=== PATIENT | female | born 1995 | race Caucasian/White ===

== ENCOUNTER → 2017-04-23 12:14 | Outpatient (CLI) | payer OTHER, MEDICAID ==
[~2017-04-23 12:14] MED LIST: IBUPROFEN800 MG PO; PERCOCET 7.5/321 TAB PO; PRENATAL COMPLE1 TAB PO
[2017-04-23 12:50] LABS: HEMATOCRIT 33.1 % (36.0-48.0); HEMOGLOBIN 11.1 g/dL (12-16); MCH 31.6 pg (26.0-34.0); MCHC 33.5 g/dL (31.0-37.0); MCV 94.3 fL (80.0-100.0); MEAN PLATELET VOLUME 11.7 fL (7.4-10.4); RBC 3.51 10x6/uL (4.00-5.40); RDW 12.7 % (11.5-14.5); WBC 14.8 10x3/uL (4.8-10.8)
[2017-04-23 13:02] LABS: ALT (SGPT) 18 U/L (10-68); CALC OSMOLALITY 279 mosm/kg (275-300); CALCIUM 9.7 mg/dL (8.5-10.1); CARBON DIOXIDE 24.8 mmol/L (21.0-32.0); CHLORIDE - SERUM 106 mmol/L (98-107); CREATININE - SERUM 0.4 mg/dL (0.6-1.3); GLUCOSE 84 mg/dL (74-106); SODIUM 142 mmol/L (136-145); UREA NITROGEN 7 mg/dL (7-18); eGFR NON AFRICAN AMERICAN > 90 mL/min (90-120)
[2017-04-23 13:49] LABS: APPEARANCE CLEAR (CLEAR); BILIRUBIN NEGATIVE (NEGATIVE); COLOR YELLOW (YELLOW); GLUCOSE NEGATIVE (NEGATIVE); KETONE NEGATIVE (NEGATIVE); NITRITE NEGATIVE (NEGATIVE); PROTEIN NEGATIVE (NEGATIVE); SPECIFIC GRAVITY 1.015 (1.005-1.020); UROBILINOGEN NORMAL (NORMAL)
[2017-04-23 13:53] LABS: AMORPHOUS SEDIMENT <1+ /lpf (NONE SEEN); BACTERIA MODERATE /hpf (NONE SEEN); EPITHELIAL CELLS 0-5 /hpf (0-5)
[2017-04-23 13:55] LABS: RED CELLS - URINE OCC /hpf (0-5)
[2017-04-26 13:08] LABS: PROTEIN - URINE 16.1 mg/dL (0.0-11.9)
[2017-05-05 05:28] VITALS: BMI 39.0
== END | disposition home or self-care (01) ==
LOC: D.LDO 12:14
PROVIDERS: Obstetrics & Gynecology
DX: O13.9 Gestational [pregnancy-induced] hypertension without significant proteinuria, unspecified trimester (principal); Z3A.00 Weeks of gestation of pregnancy not specified

== ENCOUNTER → 2017-04-26 11:36 | Outpatient (CLI) | payer OTHER, MEDICAID ==
[2017-05-05 05:28] VITALS: BMI 39.0
== END | disposition home or self-care (01) ==
LOC: D.LDO 11:36
DX: O16.3 Unspecified maternal hypertension, third trimester (principal); Z3A.35 35 weeks gestation of pregnancy

== ENCOUNTER → 2017-04-27 18:08 | Outpatient (CLI) | payer OTHER, MEDICAID ==
[2017-04-27 18:35] LABS: BASOPHILS 0.1 % (0-2); EOSINOPHILS 0.7 % (0-7); HEMATOCRIT 33.4 % (36.0-48.0); HEMOGLOBIN 11.1 g/dL (12-16); IMMATURE GRANULOCYTES 0.4 % (0-5); LYMPHOCYTES 12.4 % (15-50); MCH 31.2 pg (26.0-34.0); MCHC 33.2 g/dL (31.0-37.0); MCV 93.8 fL (80.0-100.0); MEAN PLATELET VOLUME 11.8 fL (7.4-10.4); MONOCYTES 5.3 % (2-11); NEUTROPHILS 81.1 % (40-80); PLATELET COUNT 204 10x3/uL (130-400); RBC 3.56 10x6/uL (4.00-5.40); RDW 12.6 % (11.5-14.5); WBC 14.1 10x3/uL (4.8-10.8)
[2017-04-27 18:45] LABS: APPEARANCE CLEAR (CLEAR); BILIRUBIN NEGATIVE (NEGATIVE); COLOR DK YELLOW (YELLOW); GLUCOSE NEGATIVE (NEGATIVE); KETONE SMALL mg/dL (NEGATIVE); NITRITE NEGATIVE (NEGATIVE); PROTEIN NEGATIVE (NEGATIVE); UROBILINOGEN NORMAL (NORMAL)
[2017-04-27 18:46] LABS: RED CELLS - URINE 0-5 /hpf (0-5)
[2017-04-27 18:47] LABS: BACTERIA FEW /hpf (NONE SEEN); EPITHELIAL CELLS 0-5 /hpf (0-5)
[2017-04-27 18:48] LABS: ALBUMIN 2.4 g/dL (3.4-5.0); ALKALINE PHOSPHATASE 112 U/L (46-116); ALT (SGPT) 19 U/L (10-68); BILIRUBIN - INDIRECT 0.17 mg/dL (0.00-1.00); BILIRUBIN - TOTAL 0.21 mg/dL (0.2-1.3); CALC OSMOLALITY 274 mosm/kg (275-300); CALCIUM 8.4 mg/dL (8.5-10.1); CARBON DIOXIDE 23.1 mmol/L (21.0-32.0); CHLORIDE - SERUM 105 mmol/L (98-107); CREATININE - SERUM 0.5 mg/dL (0.6-1.3); GLUCOSE 115 mg/dL (74-106); PROTEIN - SERUM 6.7 g/dL (6.4-8.2); SODIUM 138 mmol/L (136-145); UREA NITROGEN 6 mg/dL (7-18); URIC ACID 4.7 mg/dL (2.6-7.2); eGFR NON AFRICAN AMERICAN > 90 mL/min (90-120)
[2017-04-27 18:49] LABS: BILIRUBIN - DIRECT 0.04 mg/dL (0.00-0.30); POTASSIUM - SERUM 2.7 mmol/L (3.5-5.1)
[2017-05-05 05:28] VITALS: BMI 39.0
== END | disposition home or self-care (01) ==
LOC: D.LDO 18:08
PROVIDERS: Obstetrics & Gynecology
DX: O16.3 Unspecified maternal hypertension, third trimester (principal); Z3A.36 36 weeks gestation of pregnancy

== ENCOUNTER → 2017-05-03 11:43 | Outpatient (CLI) | payer OTHER, MEDICAID ==
[2017-05-03 13:10] LABS: HEMATOCRIT 32.3 % (36.0-48.0); HEMOGLOBIN 11.1 g/dL (12-16); MCH 31.3 pg (26.0-34.0); MCHC 34.4 g/dL (31.0-37.0); MEAN PLATELET VOLUME 11.7 fL (7.4-10.4); RBC 3.55 10x6/uL (4.00-5.40); RDW 12.5 % (11.5-14.5); WBC 15.1 10x3/uL (4.8-10.8)
[2017-05-03 13:21] LABS: ALT (SGPT) 16 U/L (10-68); CALC OSMOLALITY 271 mosm/kg (275-300); CALCIUM 8.5 mg/dL (8.5-10.1); CARBON DIOXIDE 24.6 mmol/L (21.0-32.0); CHLORIDE - SERUM 105 mmol/L (98-107); CREATININE - SERUM 0.4 mg/dL (0.6-1.3); GLUCOSE 76 mg/dL (74-106); SODIUM 138 mmol/L (136-145); UREA NITROGEN 5 mg/dL (7-18); URIC ACID 4.8 mg/dL (2.6-7.2); eGFR NON AFRICAN AMERICAN > 90 mL/min (90-120)
[2017-05-03 13:22] LABS: POTASSIUM - SERUM 2.9 mmol/L (3.5-5.1)
[2017-05-05 05:28] VITALS: BMI 39.0
== END | disposition home or self-care (01) ==
LOC: D.LDO 11:43
PROVIDERS: Obstetrics & Gynecology
DX: O14.03 Mild to moderate pre-eclampsia, third trimester (principal); Z3A.36 36 weeks gestation of pregnancy

== ENCOUNTER 2017-05-05 04:02 | Inpatient (IN) | payer OTHER, MEDICAID ==
[~2017-05-05] VITALS: Ht 175.3 cm; Wt 119.7 kg
[2017-05-05 04:47] LABS: APPEARANCE HAZY (CLEAR); BILIRUBIN NEGATIVE (NEGATIVE); COLOR YELLOW (YELLOW); GLUCOSE NEGATIVE (NEGATIVE); KETONE NEGATIVE (NEGATIVE); NITRITE NEGATIVE (NEGATIVE); PROTEIN TRACE mg/dL (NEGATIVE); SPECIFIC GRAVITY 1.015 (1.005-1.020); UROBILINOGEN NORMAL (NORMAL)
[2017-05-05 04:48] LABS: BACTERIA FEW /hpf (NONE SEEN); EPITHELIAL CELLS 0-5 /hpf (0-5); RED CELLS - URINE RARE /hpf (0-5)
[2017-05-05 04:54] LABS: UDS - AMPHET NEGATIVE QUAL (NEGATIVE); UDS - BARB NEGATIVE QUAL (NEGATIVE); UDS - BENZO NEGATIVE QUAL (NEGATIVE); UDS - COCAINE NEGATIVE QUAL (NEGATIVE); UDS - OPIATE NEGATIVE QUAL (NEGATIVE); UDS - PCP NEGATIVE QUAL (NEGATIVE); UDS - THC POSITIVE QUAL (NEGATIVE)
[2017-05-05] MEDS ORDERED: PRENATAL COMPLE1 TAB PO (05:27)
[2017-05-05 05:28] VITALS: BP 148/83; Ht 175.3 cm; Wt 119.7 kg
[2017-05-05 05:35] LABS: HEMATOCRIT 35.3 % (36.0-48.0); MCH 31.6 pg (26.0-34.0); MCV 92.9 fL (80.0-100.0); MEAN PLATELET VOLUME 11.9 fL (7.4-10.4); RBC 3.8 10x6/uL (4.00-5.40); RDW 12.8 % (11.5-14.5); WBC 17.3 10x3/uL (4.8-10.8)
[2017-05-05 05:51] LABS: CALCIUM 9.2 mg/dL (8.5-10.1); CARBON DIOXIDE 25.2 mmol/L (21.0-32.0); CHLORIDE - SERUM 103 mmol/L (98-107); CREATININE - SERUM 0.3 mg/dL (0.6-1.3); GLUCOSE 104 mg/dL (74-106); SODIUM 139 mmol/L (136-145); URIC ACID 4.9 mg/dL (2.6-7.2); eGFR NON AFRICAN AMERICAN > 90 mL/min (90-120)
[2017-05-05 05:52] LABS: CALC OSMOLALITY 275 mosm/kg (275-300); POTASSIUM - SERUM 2.9 mmol/L (3.5-5.1); UREA NITROGEN 7 mg/dL (7-18)
--- NOTE | 2017-05-05 15:22 | NUR ---
NO CORD ABGS NEEDED PER DR PENA
--- NOTE | 2017-05-05 16:02 | NUR ---
FUNDUS IS MIDLINE, FIRM AT THE UMBILICUS. MAGDALENO PAD IN PLACE. MINIMAL LOCHIA.
--- NOTE | 2017-05-05 16:25 | NUR ---
RECEIVED PT FROM RR VIA BED. PT AAOX3. FUNDUS FIRM U/1 AND MIDLINE. CURRENT PAD 80% SATURATED WITH RUBRA LOCHIA. NO CLOTS NOTED. CLEAN MAGDALENO PADS PLACED. IV OF NS WITH 20UNITS PITOCIN INFUSING VIA PUMP AT 125ML/HR TO LEFT FA. SITE C/D/I. LUNGS SOUND CTA, BOWEL SOUNDS ACTIVE X 4. ICE PACK PLACED OVER ABD DRESSING, WHICH IS C/D/I. 16FR ZAVALA IN PLACE AND DRAINING TO GRAVITY. REMAINS SKIN TO SKIN AT THIS TIME. PT RATING PAIN AT INCISION SITE 6/10.
[2017-05-05 16:28] VITALS: BP 139/65
--- NOTE | 2017-05-05 16:32 | NUR ---
MORPHINE PUNCH OUT CREW MEMBER CONNECTED AND PLACED ON PUMP. 2 MG LOADING DOSE GIVEN AT THIS TIME.
--- NOTE | 2017-05-05 16:39 | NUR ---
ZAVALA CATHETER 500CC YELLOW URINE COLLECTED DURING OR AND IN PACU.
--- NOTE | 2017-05-05 16:45 | NUR ---
BEDSIDE REPORT REC'D FROM Keily NGUYEN RN. PT IN SEMI FOWLERS POSITION BONDING WITH AT THIS TIME AND PREPARING TO BREAST FEED INFANT. VSS.
--- NOTE | 2017-05-05 17:01 | NUR ---
NBN AT BEDSIDE WITH . NBN RN ASSIST WITH BREAST FEEDING AT THIS TIME.
--- NOTE | 2017-05-05 17:02 | NUR ---
INFANT TO NBN WITH Keily NGUYEN RN. ASSESSMENT COMPLETED. PAIN 7/10, PT INSTRUCTED ON TRACK COACH USE AND USES TRACK COACH WITH RN AT BEDSIDE. VSS. FUNDUS FIRM, U1 AND MIDLINE, MODERATE AMT RUBRA LOCHIA, NO CLOTS PRESENT. BREATH SOUND CLEAR AND EQUAL BILATERALLY. ZAVALA TO BEDSIDE DRAINAGE, 100 MLS CLEAR LIGHT YELLOW URINE EMPTIED FROM ZAVALA. BOWEL SOUNDS HYPOACTIVE X4, PT DENIES PASSING FLATUS AT THIS TIME. DENIES NAUSEA. DRSG CLEAN, DRY, AND INTACT WITH NO DRAINAGE TO LOWER TRANSVERSE ABD. SCHEDULED TORADOL GIVEN PER ORDERS. 1+ BLE AND BUE EDEMA PRESENT. ICE CHIPS PROVIDED PER REQUEST. SCDS CONNECTED AND PUMP STARTED. PIV INFUSING TO LEFT FA, NO S/S OF INFILATRATION NOTED TO PIV SITE. ZAVALA CARE AND PERICARE DONE. PERIPADS AND CHUX CHANGE. ICE PACK GIVEN. INSTRUCTED ON INCENTIVE SPIROMETER WITH RETURN DEMONSTRATION X5. S/O AT BEDSIDE, SUPPORTIVE AND ATTENTIVE TO PT. DENIES ADDITIONAL NEEDS AT THIS TIME. BED IN LOW POSITION WITH UPPER SIDE RAILS RAISED X2. CL AND PHONE WITHIN REACH. WILL CONT TO MONITOR AND ASSIST PRN.
--- NOTE | 2017-05-05 17:39 | NUR ---
RN TO BEDSIDE. 50 MLS URINE OUTPUT NOTED. [employer] [place] SODA PROVIDED PER REQUEST. V/S REMAIN STABLE. FUNDUS REMAINS FIRM, MIDLINE, U1 WITH SMALL AMT RUBRA LOCHIA. S/O REMAINS AT BEDSIDE, BED IN LOW POSITION WITH UPPER SIDE RAILS RAISED X2. CL AND PHONE WITHIN REACH. WILL CONT TO MONITOR AND ASSIST PRN.
--- NOTE | 2017-05-05 18:33 | NUR ---
RN TO BEDSIDE FOR ROUNDING. PT RESTING WITH EYES CLOSED. PAIN 2/10. VSS. FUNDUS FIRM, U1 AND MIDLINE, SMALL AMT RUBRA LOCHIA, NO CLOTS. 75 MLS YELLOW URINE EMPTIED FROM ZAVALA. 262 MLS PIV FLUIDS AND 4 MLS FACILITY SECURITY OFFICER INFUSED. INCENTIVE SPIROMETER USED X10. POSITIONED TO LEFT SIDE WITH PILLOW PLACED BEHIND BACK FOR COMFORT AND SUPPORT. DENIES ADDITIONAL NEEDS. BED IN LOW POSITION WITH UPPER SIDE RAILS RAISED X2. CL AND PHONE WITHIN REACH. WILL CONT TO MONITOR.
[2017-05-05 19:25] VITALS: BP 140/758
--- NOTE | 2017-05-05 19:25 | NUR ---
REC'D PT LYING IN BED ON HER BACK. RESP EVEN AND UNLABORED. LUNGS CLEAR BILATERALLY. IV PATENT TO LFA, PITOCIN INFUSING AT 125CC/HR WITHOUT S/S INFILTRATION. BOWEL SOUNDS PRESENT X4. FUNDUS FIRM U/2. LARGE DRESSING INTACT TO ABDOMEN C/D/I. ZAVALA PATENT DRAINING CLEAR YELLOW URINE. LOCHIA RUBRA MODERATE. MAGDALENO PADS CHANGED. SCDS IN USE TO BLE. PUMP ON AND FUNCTIONING. PT RATES PAIN 6/10. SECURITIES COUNSELOR MORPHINE AVAILABLE FOR PAIN CONTROL, SECURITIES COUNSELOR BUTTON AND CALL LIGHT IN PT'S REACH. BED IN LOW POSITION. PT ESTEBAN NEEDS AT THIS TIME. NIKKI SLAUGHTER
--- NOTE | 2017-05-05 20:35 | NUR ---
LEMSHAHEEN TABLE MOUNTAIN, JELLO AND POPSICLE PROVIDED PER PT REQUEST.
--- NOTE | 2017-05-05 21:45 | NUR ---
ROOM CHECK, PT VISITING WITH VISITORS. NO NEEDS AT THIS TIME. NIKKI SLAUGHTER
--- NOTE | 2017-05-05 22:15 | NUR ---
TORADOL 30MG ADMINISTERED SIVP. PT RATES PAIN 8/10 TO ABDOMEN. INFORMED PT MAGDALENO CARE AND PADS WILL BE CHANGED WHEN VISITORS LEAVE. PT AGREEABLE. NIKKI SLAUGHTER
--- NOTE | 2017-05-06 00:01 | NUR ---
ANCEF 2GM BEGUN VIA PUMP. SEE E-MAR FOR DOCUMENTATION. NIKKI SLAUGHTER
[2017-05-06 00:05] VITALS: BP 120/56
--- NOTE | 2017-05-06 00:12 | OP ---
PATIENT NAME: SANDY VALLECILLO MEDICAL RECORD: [id number] :97 LOCATION:[id number] ADMISSION DATE:05/05/17 SURGEON: DE PENA MD DATE OF OPERATION: 05/05/2017 PREOPERATIVE DIAGNOSIS: Arrest of dilation. POSTOPERATIVE DIAGNOSIS: Arrest of dilation. PROCEDURE: Primary low transverse section. SURGEON: De Pena MD GRAIN UNLOADER MACHINE: Rene Vazquez ANESTHESIA: Continuous lumbar epidural. FINDINGS: Viable female infant, vertex presentation, Apgars were 8 and 9, weight 6 pounds 1 ounce. Large caput noted and significant molding. Tubes and ovaries unremarkable. SPECIMEN REMOVED: Placenta. SPECIMEN DISPOSITION: Discarded. ESTIMATED BLOOD LOSS: 700 cc. FLUIDS: Lactated Ringer's 1200 cc. URINE OUTPUT: Clear urine, 100 cc. COMPLICATION: None. DRAIN: Gallegos to gravity. INDICATION: The patient is a 21-year-old female who presented this morning after spontaneous rupture of membranes. She was augmented, and with adequate contractions, failed to dilate beyond 5 cm after 4 hours. The patient was consented for primary low transverse section. DESCRIPTION OF PROCEDURE: After informed consent was assured, the patient was taken to the operating room. Her anesthetic had been established and assessed. The patient was prepped and draped, and again after assessing the anesthetic, an incision was made and carried down to the underlying layer of the fascia. The fascia was opened and the rectus bellies were dissected free. Rectus bellies were now and the peritoneum was entered bluntly. Peritoneal opening was extended and an Aniket-O retractor was inserted and tightened. Low transverse hysterotomy was performed after development of a bladder flap. Infant was delivered onto the abdomen atraumatically. The placenta was delivered via Crede maneuver. Uterus was exteriorized, cleared of all clot and debris, and returned to the abdomen for the close. There was a small extension in the midline and this was reapproximated within it with a kiebnb-rf-[id number] chromic stitch. A #1 chromic stitch was now used to reapproximate the hysterotomy. After closure of the hysterotomy, the sponge count was correct times 1. Pelvis was irrigated. Small bleeding site was identified on the OPERATIVE REPORT [id number] SANDY VALLECILLO inferior aspect of the hysterotomy and this was made hemostatic with a zegmmm-ce-[id number] stitch. After placement of the eqcwro-jm-whfrc stitch, pelvis was again irrigated and irrigant was removed. The rectus bellies were inspected and found to be hemostatic. The fascia was now closed with a running looped PDS. After the closure of the fascia, the subcutaneous tissue was irrigated, bleeding vessels cauterized as necessary, and the subcutaneous tissue was reapproximated with a plain gut stitch. After reapproximation of the deep tissues, dov were applied. Sterile dressings were applied over this. Sponge, lap, and needle count was correct times 2. The patient was going to be recovered on labor and delivery. TRANSINT:[id number] Voice Confirmation ID: [id number] DOCUMENT ID: [id number] DE PENA MD at 0012 CC: [id number] DICTATION DATE: 05/05/17 1543 FISHER TRAWL NET: 05/05/17 2236 ADM IN [facility] [address] [place] [address]
--- NOTE | 2017-05-06 00:15 | NUR ---
MAGDALENO CARE, PADS CHANGED WITH ASSISTANCE FROM Paddy PINEDA RN. BEDSIDE REPORT GIVEN. FRESH ICE CAP AND ICE WATER TO DRINK PROVIDED PER PT REQUEST. NIKKI SLAUGHTER
--- NOTE | 2017-05-06 02:20 | NUR ---
BROUGHT BABY TO THE NURSERY IN OPEN CRIB.
--- NOTE | 2017-05-06 03:34 | NUR ---
PROP CUTTER VIAL CHANGED, PT RATES PAIN 5/10. BLANKET, [place]ON [place] PASS AND POPSICLES X2 PROVIDED PER PT REQUEST. S/O PRESENT IN ROOM AND SUPPORTIVE.
--- NOTE | 2017-05-06 04:20 | NUR ---
DR. PENA IN ROOM, AM ROUNDS.
--- NOTE | 2017-05-06 04:26 | NUR ---
TORADOL 30mg IV GIVEN SCHEDULED FOR BREAK-THROUGH PAIN. IV PUMP CLEARED AND ZAVALA CATH BAG EMPTIED. INFANT IN THE ROOM IN OPEN CRIB.
--- NOTE | 2017-05-06 04:50 | NUR ---
FIBERGLASS SKI MAKER HERE TO DRAW AM LAB.
[2017-05-06 04:55] LABS: BASOPHILS 0.1 % (0-2); EOSINOPHILS 0.4 % (0-7); HEMATOCRIT 28.7 % (36.0-48.0); HEMOGLOBIN 9.6 g/dL (12-16); IMMATURE GRANULOCYTES 0.3 % (0-5); LYMPHOCYTES 11.6 % (15-50); MCH 31.3 pg (26.0-34.0); MCHC 33.4 g/dL (31.0-37.0); MCV 93.5 fL (80.0-100.0); MEAN PLATELET VOLUME 11.6 fL (7.4-10.4); MONOCYTES 6.1 % (2-11); NEUTROPHILS 81.5 % (40-80); RBC 3.07 10x6/uL (4.00-5.40); RDW 12.9 % (11.5-14.5); WBC 14.4 10x3/uL (4.8-10.8)
[2017-05-06 05:02] LABS: PLATELET COUNT 150 10x3/uL (130-400)
--- NOTE | 2017-05-06 05:08 | NUR ---
ASSISTED MOM WITH UNTIL BABY LATCHED-ON. NIPPLE SHIELD USED. BONDING WELL.
--- NOTE | 2017-05-06 06:00 | NUR ---
ZAAVLA/MAGDALENO-CARE DONE. MODERATE TO LIGHT LOCHIA RUBRA. MAGDALENO-PAD CHANGED. ZAVALA CATH DC'd ORDERED. INSTRUCTED PT SHE WILL NEED TO VOID WITHIN 4hrs AND TO CALL FOR ASSISTANCE WHEN GETTING OUT OF BED FOR THE FIRST TIME. WILL NEED TO MEASURE FIRST THREE VOIDS. VERBALIZED UNDERSTANDING. SLEPT FAIRLY DURING THE NIGHT. CONTINUING PLAN OF CARE.
--- NOTE | 2017-05-06 07:00 | NUR ---
REPORT GIVEN TO AM SHIFT NURSES.
[2017-05-06 07:14] VITALS: BP 146/71
--- NOTE | 2017-05-06 07:14 | NUR ---
RECEIVED PT SITTING UP IN BED. AWAKE. VSS. HRRR WITHOUT AUDIBLE MURMUR. BBS CLEAR. BS X 4 QUADS-HYPOACTIVE. PT DENIES PASSING GAS. ABDOMEN SOFT/NON-DISTENDED. FUNDUS FIRM AT U/1. RUBRA LOCHIA SMALL AMT. NO CLOTS NOTED ON PERIPAD. ABDOMINAL DRESSING DRY WITHOUT DRAINAGE NOTED. NEG HOMANS' SIGN. PPP. 2+/2+ EDEMA NOTED TO BLE. SCDS ON BLE. PUMP ON. PIV SITE CLEAR TO LEFT WRIST. PT STATES PAIN OF "6" ON 0-10 PAIN SCALE. MORPHINE GOLF TECHNICIAN INFUSING. STATES MEDICATION HELPING TO RELIEVE PAIN. SR UPX 2. CALL LIGHT IN REACH.
--- NOTE | 2017-05-06 07:30 | NUR ---
PIV CONVERTED TO SALINE LOCK. SITE RETAPED AND SECURED. PT OOB AND AMB TO BR. VOIDS 100 ML OF BLOOD-TINGED URINE. PERICARE DONE PER PT. PANTIES AND PADS ON. GOWN CHANGED. NON-SKID SOCKS ON. PT AMBULATES TO BED AND SITS ON SIDE OF BED. TOLERATES ACTIVITY WELL.
--- NOTE | 2017-05-06 07:40 | NUR ---
PT TRANSFERED VIA WHEELCHAIR TO ROOM 1220. PT TO BED. SITS UP IN BED PER PT REQUEST. CHARLIE ACTIVITY WELL.
--- NOTE | 2017-05-06 08:07 | NUR ---
PT C/O INCISIONAL PAIN OF "7" ON 0-10 PAIN SCALE. PERCOCET 5/325 2 TABS GIVEN PO. PT INSTRUCTED ON MED. VERBALIZES UNDERSTANDING.
--- NOTE | 2017-05-06 09:07 | NUR ---
PT AMBULATORY IN HALLS TO [facility]. STATES PAIN NOW "5" ON 0-10 PAIN SCALE. DENIES NEEDS OR C/O.
--- NOTE | 2017-05-06 09:11 | NUR ---
Kim Stiles 05/06/17 S: Patient states, "I was breastfeed but is hard. I tried latching her several times but she doesn't always latch. She did feed one time for 30 minutes. The last time I feed her, my nipples were bleeding, so I stopped. I didn't tell the nurse, I just gave her a bottle. My nipples don't hurt if I touch them. I prefer just to give her formula, it's easier. Several nurses did try to help me with latching but it's still hard. Patient declined LC looking at her nipples. I think they will be fine. Verbally agrees to ask for help if she decides she wants to start back . Doesn't want any help at this time. " O: Patient standing next to crib by infant. FOB in room also. We do respect how you prefer to feed your baby. does take time for both mother and infant. When you say your nipples were bleeding, did you let the nurse know? Asked patient if she touches her nipples do they hurt? Asked if she would like me to look at her nipples, to see what I can do to help? Would you like any help with ? If you do decide you would like to start back , please let us know, we will be happy to help. A: Patient decides not to breastfeed due to pain and being hard prefers to formula feed. P: If patient decides to , please reach out to staff for assistance during hospital visit. Mae Montiel, CLC
--- NOTE | 2017-05-06 10:00 | NUR ---
TORADOL 30 MG GIVEN SIVP OVER 2 MINUTES. PT INSTRUCTED ON MED. VERBALIZES UNDERSTANDING.
--- NOTE | 2017-05-06 10:37 | NUR ---
PT IN SHOWER AT THIS TIME. STATES CHARLIE WELL.
--- NOTE | 2017-05-06 11:05 | NUR ---
PT FINISHED WITH SHOWER. ABDOMINAL BANDAGE REMOVED PER PT. INCISION OPEN TO AIR WITH CARLYLE. NO REDNESS, SWELLING OR DRAINAGE NOTED. PERIPAD TO INCISION. PT BACK TO BED. CHARLIE ACTIVITY WELL.
--- NOTE | 2017-05-06 11:06 | NUR ---
PT STATES VOIDED, BUT DID NOT VOID IN SPECIPAN.
[2017-05-06 11:20] VITALS: BP 115/58
--- NOTE | 2017-05-06 11:20 | NUR ---
PT SITTING UP IN BED. VSS. PT DENIES NEEDS OR C/O.
--- NOTE | 2017-05-06 12:42 | NUR ---
PT SITTING UP IN BED. FEEDING INFANT. PT STATES PAIN NOW "4" ON 0-10 PAIN SCALE. PT REQUESTS ASSISTANCE WITH FEEDING. PT PROVIDED TIPS ON FEEDING .
--- NOTE | 2017-05-06 13:34 | NUR ---
PT C/O INCISIONAL PAIN/ACHING OF "8" ON 0-10 PAIN SCALE. PERCOCET 5/325 2 TABS GIVEN PO ORDERED.
--- NOTE | 2017-05-06 14:00 | NUR ---
PT LYING SUPINE IN BED. EYES CLOSED. WAKES UPON ENTERING ROOM. DENIES NEEDS. STATES PAIN MEDICATION RELIEVING PAIN. PAIN NOW "2" ON 0-10 PAIN SCALE. TO NSY WHILE PARENTS SLEEP.
--- NOTE | 2017-05-06 15:21 | NUR ---
DR PENA NOTIFIED OF TORADOL ORDERS. NEW ORDERS RECEIVED.
[2017-05-06 15:50] VITALS: BP 135/75
--- NOTE | 2017-05-06 15:51 | NUR ---
PT C/O INCISIONAL PAIN OF "6" ON 0-10 PAIN SCALE. IBUPROFEN 600 MG GIVEN PO ORDERED. PT INSTRUCTED ON MED. VERBALIZES UNDERSTANDING.
--- NOTE | 2017-05-06 15:51 | NUR ---
500 ML OF BLOOD-TINGED URINE NOTED IN SPECIPAN.
--- NOTE | 2017-05-06 17:15 | NUR ---
PT SITTING UP IN BED. HOLDS WITH MUCH WARMTH SHOWN. STATES HAS EMESIS ON BLANKETS AND T SHIRT. INFANT RETURNED TO [facility] TO NOTIFY NURSE OF EMESIS.
--- NOTE | 2017-05-06 18:30 | NUR ---
PT SITTING UP IN BED. VISITS WITH FAMILY. DENIES NEEDS OR C/O.
[2017-05-06 19:25] VITALS: BP 145/82
--- NOTE | 2017-05-06 19:26 | NUR ---
PATIENT SITTING ON EDGE OF BED. STATES SHE HAS 6/10 ABDOMINAL CRAMPING PAIN AND WOULD LIKE PAIN MEDICATION. VITAL SIGNS TAKEN, BP ELEVATED. CALL SUAREZ IN REACH, PT INSTRUCTED TO CALL WITH ANY FURTHER NEEDS.
--- NOTE | 2017-05-06 19:35 | NUR ---
PATIENT GIVEN PERCOCET 5/325MG PO AT THIS TIME WITH WATER. DENIES OTHER NEEDS.
--- NOTE | 2017-05-06 20:30 | NUR ---
ASSESSMENT PER FLOW SHEET, SALINE LOCK IN LEFT FA INTACT WITH NO REDNESS OR EDEMA, FF, ML, U/1, LITE BLEEDING NOTED WITH NO CLOTS ON MAGDALENO PAD, BIKINI INC WITH CARLYLE CDI WITH NO DRAINAGE NOTED, MAGDALENO PAD OVER INC FOR COMFORT AND MOISTURE CONTROL, PT REPORTS FLATUS, NO BM AND VOIDING BY SELF WITH NO DIFFICULTY, PT DNEIES PAIN AT THIS TIME, REQUESTED AND SERVED [employer] [place] SODA, FOB AT BEDSIDE HOLDING BABY, DINNER TRAY REMOVED
--- NOTE | 2017-05-06 21:15 | NUR ---
PT UP IN ROOM, FOLDING BABY BLANKET, DENIES NEEDS OR PAIN AT THIS TIME, BEDDING PROVIDED TO FOB
--- NOTE | 2017-05-06 22:36 | NUR ---
PT HOLDING BABY, DENIES PAIN, REQUESTED AND SERVED ZAMUDIO POPSICLE, PT DENIES FURTHER NEEDS
[2017-05-07 00:17] VITALS: BP 145/75
--- NOTE | 2017-05-07 00:17 | NUR ---
LATE ENTRY: PT C/O SALINE LOCK, REPORTS THAT IT IS VERY ITCHY AND IT HURTS, REQUESTS THAT I TAKE IT OUT, SALINE LOCK REMOVED, TIP INTACT, PRESSURE HELD, BANDAID APPLIED
--- NOTE | 2017-05-07 00:17 | NUR ---
PT AWAKE, LAYING IN BED, BABY AND FOB AT BEDSIDE, VS OBTAINED, C/O CRAMPING, ADM MOTRIN PO PER MD ORDERS, PT INQUIRES ABOUT PAIN MED, INFORMED PT THAT THE 2 PERCOCET WEREN'T DUE TILL 1:30AM, BUT GAVE THE PT THE OPTION OF TAKING THE 1 PERCOCET, PT REQUESTS TO WAIT FOR THE 2 PERCOCET, PT DENIES FURTHER NEEDS, READY TO GET SOME REST, BABY TO NSY VIA OPEN CRIB CART PER THIS RN
--- NOTE | 2017-05-07 02:05 | NUR ---
PT RESTING WITH EYES CLOSED, RESP QUIET, NO DISTRESS NOTED, LEFT UNDISTURBED AT THIS TIME, FOB ASLEEP IN RECLINER
[2017-05-07 03:45] VITALS: BP 150/71
--- NOTE | 2017-05-07 03:45 | NUR ---
PT RESTING WITH EYES CLOSED, AROUSES TO SOFT VERBAL STIMULATION, VS OBTAINED, ADM PERCOCET PO PER MD ORDERS, SEE EMAR, WITH FRESH H20, PT DENIES FURTHER NEEDS, FOB ASLEEP IN RECLINER
--- NOTE | 2017-05-07 04:37 | NUR ---
PT AROUSES TO OPENING OF DOOR, C/O ROOM IS WARM, HEAT/AIR UNIT OFF AT THIS TIME, AIR TURNED ON TO 65 PER PT'S REQUEST, PT INST TO USE CALL LIGHT IF IT GETS TOO COLD IN THERE, PT VERBALIZES UNDERSTANDING, DENIES FURTHER NEEDS OR PAIN AT THIS TIME, FOB ASLEEP IN RECLINER
--- NOTE | 2017-05-07 06:17 | NUR ---
PT RESTING WITH EYES CLOSED, RESP QUIET, NO DISTRESS NOTED, LEFT UNDISTURBED AT THIS TIME, FOB ASLEEP IN RECLINER
--- NOTE | 2017-05-07 07:00 | NUR ---
SHIFT REPORT TO SABI RODRIGUEZ RN
[2017-05-07 07:28] LABS: RAPID PLASMA REAGIN Non Reactive (Non Reactive)
[2017-05-07 07:40] VITALS: BP 144/77
--- NOTE | 2017-05-07 07:45 | NUR ---
PT IS RECEIVED THIS AM, SLEEPING IN BED. SHE IS AWAKENED EASILY AND OFFERS NO COMPLAINTS. GEN- ALERT, LUNGS- CLEAR. HEART- RRR. ABD- SOFT WITH SOME TENDERNESS NOTED. BS +. BIKINI LINE INCISION WITH STERI STRIPS. EXT- NO EDEMA. FOB AT BEDSIDE. SHE STATES THAT SHE DOES NOT NEED ANYTHING AT THIS TIME. BED IS LOW, KARLENE E RAILS UP X 2 AND CALL LIGHT IN REACH.
--- NOTE | 2017-05-07 09:18 | NUR ---
LATRICIA IS HERE VISITING WITH PT AND FOB.
[2017-05-07] MEDS ORDERED: PERCOCET 7.5/321 TAB PO (11:07)
[2017-05-07] MEDS ORDERED: IBUPROFEN800 MG PO (11:08)
--- NOTE | 2017-05-07 12:22 | NUR ---
PT IS DISCHARGED HOME WITH BABY. DISCHARGE INSTRUCTIONS GIVEN WELL FU APPTS AND PRESCRIPTIONS. PT REFUSE WHEELCHAIR AND WANTS TO WALK TO FRONT
--- NOTE | 2017-05-07 12:23 | NUR ---
PT IS RESTING IN BED. OFFERS NO COMPLAINTS. SHE HAS BEEN AMBULATING IN HALLWAY THIS AM.
== END 2017-05-07 12:24 | disposition home or self-care (01) | DRG 766 ==
LOC: D.LDO 04:02 → D.LD 04:50 → D.WS 04:50 → D.LD 16:25 → D.WS 05-06 07:40
PROVIDERS: ADMIT Obstetrics & Gynecology
PROC: 10D00Z1 Extraction of Products of Conception, Low, Open Approach (ICD-10-PCS; principal; 2017-05-05 15:05)
DX: O62.1 Secondary uterine inertia (principal); O42.90 Premature rupture of membranes, unspecified as to length of time between rupture and onset of labor, unspecified weeks of gestation; Z3A.37 37 weeks gestation of pregnancy; Z37.0 Single live birth; O99.344 Other mental disorders complicating childbirth; O99.334 Smoking (tobacco) complicating childbirth; E87.6 Hypokalemia; O14.94 Unspecified pre-eclampsia, complicating childbirth